=== PATIENT | female | born 1985 | race Caucasian/White ===

== ENCOUNTER 2024-12-30 20:44 | Emergency (ER) | payer MEDICAID, SELFPAY ==
[2024-12-30 20:45] VITALS: BMI 37.1
--- NOTE | 2024-12-30 20:58 | EKG_ITS ---
[facility] Test Date: 2024-12-30 Pat Name: SHAE MARY Department: Room: - Gender: Female [employer] Mark[employer]: : 1985 Requested By: Max Philip Order Number: [id number] Reading MD: Max Philip Measurements Intervals [place] Rate: 80 P: 60 ME: 153 QRS: 30 QRSD: 89 T: 20 QT: 359 QTc: 414 Interpretive Statements SINUS RHYTHM LOW QRS VOLTAGE IN PRECORDIAL LEADS [QRS DEFLECTION < 1.0 mV IN CHEST LEADS] POSSIBLE ANTERIOR MYOCARDIAL INFARCTION , PROBABLY OLD [30 ms Q WAVE IN V3/V4, OR R < 0.2 mV IN V4] No previous ECG available for comparison /store/[email or web address]/[id number].pdf
[2024-12-30 21:21] VITALS: BP 138/97; PULSE 79; RESP 20; TEMP 36.8; O2SAT 99
--- NOTE | 2024-12-30 22:00 | XR_ITS ---
Examination: AP lateral soft tissue neck 2 views TECHNIQUE: AP lateral soft tissue neck 2 views Date and time: December 30, 2024, 10:14 PM INDICATIONS: Coughing and wheezing beginning 4 days ago. FINDINGS: Normal epiglottis. No distention hypopharynx Mild prevertebral soft tissue swelling, 15 mm at the C5 level No foreign body IMPRESSION: Normal epiglottis. Mild prevertebral soft tissue swelling
--- NOTE | 2024-12-30 22:00 | XR_ITS ---
Examination: PA chest single view Activity 100 by PA chest single view Date and time: December 30, 2024, 2206 hours INDICATIONS: Coughing and shortness of breath chest pain beginning 5 days ago. FINDINGS: Normal heart size. Lungs are clear. The osseous structures are intact IMPRESSION: No active disease
[2024-12-30] MEDS: DEXAMETHASONE SOD PHOS INJ 10 MG/ML VIAL PO (22:24)
[2024-12-30] MEDS: ALBUTEROL/IPRATROPIUM (Duoneb) RT SOL 3 ML NEBU 6 ML INH (22:34)
[2024-12-30 22:37] VITALS: PULSE 99; RESP 20; O2SAT 91
[2024-12-30 23:17] VITALS: RESP 20; O2SAT 96
--- NOTE | 2024-12-31 00:12 | PD.EDURI ---
Upper Respiratory Inf. RME/HPI General Chief Complaint: Shortness of Breath/Dyspnea Stated Complaint: I CAN'T BREATH X5-10 MINUTES Time Seen by Provider: 12/30/24 22:00 Arrival date/time: 12/30/24 20:44 39F with no significant PMH presents to ED with several days of cough, SOB, and sore throat. Limitations: no limitations Related Data Previous Rx's ?Medication ?Instructions ?Recorded PROMETHAZINE/CODEINE (Phenergan 1 tsp PO QIDPRN PRN COUGH #120 mL 05/04/13 W/Cod Syrup) ibuprofen 600 mg tablet 1 tab PO TIDWM PAIN #28 tabs 05/04/13 albuterol sulfate 90 mcg/actuation 2 puff inhalation Q6H PRN 12/31/24 aerosol inhaler (Ventolin HFA) shortness of breath or wheezing #8.5 grams prednisone 20 mg tablet 20 mg PO BID 3 days #6 tabs 12/31/24 Allergies Allergy/AdvReac Type Severity Reaction Status Date / Time No Known Allergies Allergy Verified 12/30/24 20:45 Review of Systems Review of Systems Systems Reviewed: All systems reviewed, normal except as documented Constitutional Constitutional: Reports system reviewed and no additional complaints, except as documented, Denies fever(s) and Denies headache(s) ENT Ears, Nose, Mouth, and Throat: Reports as per HPI, Denies disequilibrium, Denies headache(s) and Reports sore throat Cardiovascular Cardiovascular: Reports system reviewed and no additional complaints, except as documented, Denies chest pain and Reports dyspnea Respiratory Respiratory: Reports system reviewed and no additional complaints, except as documented, Reports as per HPI, Reports cough and Reports dyspnea Gastrointestinal Gastrointestinal: Reports system reviewed and no additional complaints, except as documented, Denies abdominal pain, Denies nausea and Denies vomiting Neurologic Neurologic: Reports system reviewed and no additional complaints, except as documented, Denies confusion, Denies disequilibrium and Denies headache(s) Psychiatric Psychiatric: Denies confusion Past Medical History Social History SMOKING STATUS: Never smoker ED Exam General Limitations: Present no limitations General appearance: Present alert and in no apparent distress Head Head exam: Present atraumatic Eye Eye exam: Present normal appearance, PERRL and EOMI ENT ENT exam: Present normal exam, normal oropharynx and mucous membranes moist Neck Neck exam: Present normal inspection, full ROM and trachea midline Chest Chest inspection: Present normal inspection and symmetric chest wall rise Respiratory Respiratory exam: Present wheezes Cardiovascular Cardiovascular exam: Present regular rate, normal rhythm and normal heart sounds Abdominal Exam Abdominal exam: Present soft and normal bowel sounds Extremities Exam Extremities exam: Present normal inspection and full ROM Back Exam Back exam: Present normal inspection and full ROM Neurological Exam Neurological exam: Present alert, oriented X3 and CN II-XII intact Psychiatric Psychiatric exam: Present normal affect and normal mood Skin Skin exam: Present warm, dry, intact and normal color Course Quality Measures none Orders Category Date Time Status Bedside COVID-19 Antigen Test NOW Care 12/30/24 22:00 Completed Bedside Influenza A&B Antigen Test NOW Care 12/30/24 22:00 Completed EKG (ED ONLY) *Do not use* NOW Care 12/30/24 20:58 Completed EKG (ED Only) Stat Exams 12/30/24 20:58 Draft XR chest 2V Stat Exams 12/30/24 22:00 Completed XR soft tissue neck Stat Exams 12/30/24 22:00 Completed Strep A Rapid Stat Lab 12/30/24 23:36 Completed Albuterol/Ipratr Rt Allegra [Duoneb Rt Allegra] Med 12/30/24 22:00 Discontinued 6 ml INH X1 ONE Dexamethasone Inj [Decadron Inj] Med 12/30/24 22:00 Discontinued 10 mg PO X1 ONE Vital Signs Vital signs: Vital Signs Temperature 98.3 F 12/30/24 21:21 Pulse Rate 79 12/30/24 21:21 Respiratory Rate 20 12/30/24 21:21 Blood Pressure 138/97 H 12/30/24 21:21 Pulse Oximetry (%) 99 12/30/24 21:21 Oxygen Delivery Method Room Air 12/30/24 21:21 O2 at 99% on RA and WNLs Upper Respiratory Infection MDM Narrative MDM Narrative:: 39F with no significant PMH presents to ED with several days of cough, SOB, and sore throat. Physical exam reveals wheezing in lungs. Orophyarnx clear. Patient is afebrile, alert, but anxious. CXR unremarkable. XR soft tissue some prevertebral swelling. Meds relieved wheezing. Swabs neg. Likely viral URI. Patient data External records reviewed:: [facility] previous records Clinical information provided by:: patient Social determinants that could affect healthcare access:: none Patient has the following chronic illnesses:: none How is presenting disease/condition affected by chronic disease/condition?: no chronic disease Evaluation data The following diagnostics were reviewed and interpreted by me:: lab results and radiology exam(s) Lab and/or radiology exams considered but not ordered:: ordered Interpretation Summary: above Medications / Prescriptions Medications or Prescriptions considered but not ordered:: ordered Medication administrations:: Medication Administration History Discontinued Medications Albuterol/Ipratropium (Albuterol/Ipratropium (Duoneb) Rt Allegra 3 Ml Nebu) 6 ml INH X1 ONE Stop: 12/30/24 22:01 Last Admin: 12/30/24 22:34 Dose: 6 ml Documented By: CS Dexamethasone Sodium Phosphate (Dexamethasone Sod Phos Inj 10 Mg/Ml Vial) 10 mg PO X1 ONE Stop: 12/30/24 22:01 Last Admin: 12/30/24 22:24 Dose: 10 mg Documented By: CB Comments: PO above Consultations Consultation(s) initiated? (list below): No Diagnosis Upper Respiratory Differential Diagnosis: upper respiratory infection, croup, otitis media, sinusitis, viral infection, bronchitis, influenza and pharyngitis Most likely diagnosis given after review of the tests above:: URI Admission Indicated Admission indicated?: not indicated Admission Request Was there a request for admission?: No Disposition Plan Disposition Plan: Discharge Discharge Attestation Discharge Attestation: The patient and all family members were given an opportunity to ask questions and understood the discharge instructions. Discharge instructions specifically effects, indications for sooner follow up or return to the emergency department, and the expected course of current diagnosis. Patient condition: Stable Discharge Plan Plan Patient Disposition: HOME (Self Care) Discharge Disposition comment: Stable Prescriptions/Referrals Prescriptions/Med Rec: New prednisone 20 mg tablet 20 mg PO BID 3 Days Qty: 6 0RF albuterol sulfate [Ventolin HFA] 90 mcg/actuation HFA aerosol inhaler 2 puff inhalation Q6H PRN (Reason: shortness of breath or wheezing) Qty: 8.5 0RF Rx Instructions: w/ education please No Action ibuprofen 600 MG tablet 1 tab PO TIDWM Qty: 28 0RF PROMETHAZINE/CODEINE (Phenergan W/Cod Syrup) 1 ML syrup 1 tsp PO QIDPRN PRN (Reason: COUGH) Qty: 120 0RF Referrals: No Primary/Family,Physician [Primary Care Provider] - In 1 week Problem List Clinical Impression: URI (upper respiratory infection) Patient/Caregiver Discharge Instructions Education Materials: ED URI, Viral W/ Wheezing (Adult) Additional Instructions: Please follow-up with PCP within 24-48 hours and return immediately if symptoms worsen. Ibuprofen/Tylenol can be used simultaneously for greater fever/pain control. Take OTC antihistamine as needed until symptoms resolve. Finish entire steroid course. Print Language: Sudanese Stand Alone Forms: Patient Portal Info Letter PA/FAN BALANCER Supervising Physician BRYANNA/LISA Supervising Physician: Dr. To
[2024-12-31 00:24] LABS: Strep A Rapid Negative (Negative)
== END 2024-12-31 00:36 | disposition home or self-care (01) ==
PROVIDERS: Physician Assistant; Emergency Provider Emergency Medicine
DX: J06.9 Acute upper respiratory infection, unspecified (principal)
CPT/HCPCS: 70360; 71046; 87400; 87651; 87811; 93005; 94640; 99283; A9270; J1100